=== PATIENT | male | born 1990 | race Caucasian/White ===

== ENCOUNTER 2021-07-18 00:15 | Emergency (ER) | payer SELFPAY ==
[~2021-07-18] VITALS: Ht 162.6 cm; Wt 72.7 kg
[2021-07-18 00:43] LABS: COLLECTION METHOD CLEAN CATCH
[2021-07-18 01:02] LABS: ALBUMIN 3.9 gm/dL (3.5-5.0); BILIRUBIN,TOTAL 0.3 mg/dL (0.2-1.2); CALCIUM 8.9 mg/dL (8.4-10.2); CREATININE, serum 0.8 mg/dL (0.72-1.25); POTASSIUM 3.9 mmol/L (3.5-4.5); TOTAL PROTEIN 7.5 gm/dL (6.2-8.1)
[2021-07-18 01:14] LABS: BASO % 0.5 % (0.0-2.0); GRAN # 4.7 K/mm3 (1.4-6.5); GRAN % 74.4 % (42.2-75.2); HEMATOCRIT 41.8 % (42.0-52.0); HEMOGLOBIN 14.2 g/dl (13.5-18.0); LYMPH % 16.4 % (20.0-51.0); MEAN CELL VOLUME 92 fl (80.0-100.0); MEAN CORPUSCULAR HEMOGLOBIN 31 pg (27.0-31.0); MEAN CORPUSCULAR HGB CONC 34 g/dl (33.0-37.0); MEAN PLATELET VOLUME 9.2 fl (7.4-10.4); MONO # 0.5 K/mm3 (0.1-0.6); MONO % 8.1 % (1.7-9.3); PLATELET COUNT 201 K/mm3 (130-400); RED BLOOD COUNT 4.57 M/mm3 (4.20-5.60); REDCELL DISTRIBUTION WIDTH-CV 12.1 % (11.5-14.5)
[2021-07-18 01:30] LABS: MUCOUS Present (NOT PRESENT); PH 5 (5-8); SQUAMOUS EPITHELIAL None Seen /hpf (0-10); URINE APPEARANCE Clear (CLEAR/HAZY); URINE BACTERIA None Seen (NONE SEEN); URINE BILIRUBIN Negative (NEGATIVE); URINE BLOOD 1+ (NEGATIVE); URINE COLOR Yellow (YELLOW); URINE GLUCOSE Negative (NEGATIVE); URINE KETONE Negative (NEGATIVE); URINE LEUKOCYTE ESTERASE 1+ (NEGATIVE); URINE NITRATE Negative (NEGATIVE); URINE PROTEIN(semi-quant) Negative (NEGATIVE); URINE UROBILINOGEN Negative (NEGATIVE)
[2021-07-18 02:24] LABS: HIV 1/2 Antibodies Non-Reactive; HIV-1p24 Antigen Non-Reactive
[2021-07-18 02:44] VITALS: TEMP 100.6
[2021-07-18] MEDS ORDERED: DOXYCYCLINE 10100 MG PO (04:01)
[2021-07-18 04:39] VITALS: BP 110/78; PULSE 80
[2021-07-18] MEDS ORDERED: NAPROSYN500 MG PO (18:04)
[2021-07-18] MEDS ORDERED: FLEXERIL 1010 MG/TAB PO (18:04)
== END 2021-07-18 04:39 | disposition home or self-care (01) ==
LOC: COL.ER 00:15
PROVIDERS: Emergency Medicine
DX: A54.9 Gonococcal infection, unspecified (principal); Z20.822 Contact with and (suspected) exposure to COVID-19
CPT/HCPCS: J0696; J2270; J2405; J7030; Q9967

== ENCOUNTER 2021-07-18 16:43 | Emergency (ER) | payer SELFPAY ==
[~2021-07-18] VITALS: Ht 162.6 cm; Wt 72.7 kg
[~2021-07-18 16:43] MED LIST: DOXYCYCLINE 10100 MG PO
[2021-07-18 17:49] LABS: COLLECTION METHOD CLEAN CATCH
[2021-07-18 17:57] LABS: MUCOUS Present (NOT PRESENT); PH 5 (5-8); SQUAMOUS EPITHELIAL None Seen /hpf (0-10); URINE APPEARANCE Clear (CLEAR/HAZY); URINE BACTERIA None Seen (NONE SEEN); URINE BILIRUBIN Negative (NEGATIVE); URINE BLOOD 1+ (NEGATIVE); URINE COLOR Straw (YELLOW); URINE GLUCOSE Negative (NEGATIVE); URINE KETONE Negative (NEGATIVE); URINE LEUKOCYTE ESTERASE Trace (NEGATIVE); URINE NITRATE Negative (NEGATIVE); URINE PROTEIN(semi-quant) Negative (NEGATIVE); URINE RBC 0-2 /hpf (0-2); URINE UROBILINOGEN Negative (NEGATIVE)
[2021-07-18] MEDS ORDERED: FLEXERIL 1010 MG/TAB PO (18:04)
[2021-07-18] MEDS ORDERED: NAPROSYN500 MG PO (18:04)
[2021-07-18 18:28] VITALS: BP 115/76; PULSE 101; TEMP 98.4
== END 2021-07-18 18:40 | disposition home or self-care (01) ==
LOC: COL.ER 16:43
PROVIDERS: Nurse Practitioner Primary Care
DX: A54.9 Gonococcal infection, unspecified (principal); M54.50 Low back pain, unspecified; F17.210 Nicotine dependence, cigarettes, uncomplicated
CPT/HCPCS: J1885